=== PATIENT | female | born 1945 | race African-American/Black ===

== ENCOUNTER → 2016-11-20 | Outpatient (CLI) | payer MEDICARE, OTHER ==
[~2016-11-20] MED LIST: CRESTOR PO; DOC-Q-LACE100 MG PO; GLUCOPHAGE850 MG PO; GLYBURIDE PO; LANTUS100 U/ML SUBQ; LASIX20 MG PO; LOPRESSOR PO; METFORMIN HCL500 M1 PO; NOVOLIN 70/30 V10 M1 SQ; PRINIVIL10 MG PO; PRINIVIL40 MG PO; SIMVASTATIN80 MG PO; TRICOR145 MG PO; [UNRECOGNIZED DRUG - OTHER] OU
--- NOTE | ~2016-11-20 | CT57 ---
[facility] A Service of [facility] & [facility] RADIOLOGY TEXT RESULTS PATIENT: ROSA BUSTAMANTE LOCATION: [facility] : [birth year] UNIT #: [id number] AGE: [address]: Acosta Kelley MD SEX: F ORDER DR: [id number] [facility] [address]. [place], [place] [address] [id number] O MR#: [id number] Acc #: [id number] NAME: ROSA BUSTAMANTE : 1945 SEX: F STUDY DATE/TIME: 11/20/2016 10:39 UNIT: [facility] ROOM: STUDY DESCRIPTION: CT Chest Wo Cont Attending Physician: Acosta Kelley M.D. Ordering Physician: Acosat Kelley M.D. Primary Care Physician: Sam Jin M.D. MEDICAL IMAGING REPORT This report is preliminary unless electronic signature is present EXAM CT chest 11/20/2016 INDICATIONS Follicular lymphoma. Restaging. Observation for metastatic disease. TECHNIQUE CT of the thorax without contrast. Coronal and sagittal reconstructions were obtained. IV contrast was not administered due to the patient's underlying renal insufficiency. This CT exam was performed with one or more of the following radiation dose reduction techniques: automatic exposure control, adjustment of mA and/or kV according to patient size, and iterative reconstruction. COMPARISON CT chest dated 01/16/2016. FINDINGS There has been progression of the patient's lymphoma. An index lesion in the left axilla measures 4.9 x 5.1 cm, compared to 4.1 x 3.2 cm previously. Please note that the initial index lesion was excluded from the field of view in the left axilla. A index right axillary lymph node measures 4.4 x 3.9 cm compared to 3 x 2.97 previously. There is a new conglomeration of lymph nodes in the right axilla measuring up to 8.4 cm, compared to 5 cm previously. A left superior mediastinal lymph node measures 1 cm, unchanged. Please refer to separately dictated report for details on the neck. There is soft tissue in the anterior mediastinum measuring 5.6 x 3.4 cm, not significantly changed (previously 5.5 x 3.6 cm). [facility] A Service of [facility] RADIOLOGY TEXT RESULTS PATIENT: ROSA BUSTAMANTE LOCATION: [facility] : [birth year] UNIT #: [id number] AGE: [address]: Acosta Kelley MD SEX: F ORDER DR: No pericardial or pleural effusion. Central airways are patent. No focal airspace opacity. Please refer to separately dictated report for details on the abdominal lymphadenopathy. No new osseous abnormalities. IMPRESSION Progression of the patient's lymphadenopathy. This is predominately in the bilateral axilla. Dictated by... Joe Burkett M.D. THIS IS AN ELECTRONICALLY VERIFIED REPORT Joe Burkett M.D. at 11/21/2016 7:50 AM Vladislav TD: 11/20/2016 18:14 JOB #: [id number] MEDICAL IMAGING REPORT Page 1 of 1 COPY
--- NOTE | ~2016-11-20 | CT116 ---
[facility] A Service of [facility] RADIOLOGY TEXT RESULTS PATIENT: ROSA BUSTAMANTE LOCATION: [facility] : 45 UNIT #: [id number] AGE: [address]: Acosta Kelley MD SEX: F ORDER DR: [id number] [facility]. [place], [place] [address] [id number] O MR#: [id number] Acc #: [id number] NAME: ROSA BUSTAMANTE : 1945 SEX: F STUDY DATE/TIME: 11/20/2016 10:39 UNIT: [facility] ROOM: STUDY DESCRIPTION: CT Soft Tissue Neck Wo Cont Attending Physician: Acosta Kelley M.D. Ordering Physician: Acosta Kelley M.D. Primary Care Physician: Sam Jin M.D. MEDICAL IMAGING REPORT This report is preliminary unless electronic signature is present EXAM CT of the neck soft tissue without contrast. DATE OF EXAM 11/20/2016 HISTORY Follicular lymphoma for followup yearly. No current complaint per patient. COMMENT The patient did not receive contrast due to eGFR 35 at [id number] testing. This does somewhat limit evaluation for lymphadenopathy in the neck. COMPARISON The previous study for comparison is from 2009. TECHNIQUE NOTE: This CT exam was performed with one or more of the following radiation dose reduction techniques: automatic exposure control, adjustment of mA and/or kV according to patient size, and iterative reconstruction. FINDINGS Redemonstrated is extensive lymphadenopathy in the neck. Some sample comparison measurements are as follows. Right-sided jugular chain level 2-3B deep to the sternocleidomastoid muscle is a enlarged lymph node measuring 2.4 x 1.7 cm in dimension. This compares to previously measuring 3.5 x 3 cm dimension. Sample lymph node left side jugular chain level 3B deep to the sternocleidomastoid muscle measures 2.4 x 1.3 cm dimension as compared to 2.4 x 1.5 cm previously. Extensive lymphadenopathy is seen along the bilateral jugular chains 2, 3, 4 in the [facility] A Service of [facility] RADIOLOGY TEXT RESULTS PATIENT: ROSA BUSTAMANTE LOCATION: [facility] #: [id number] : [birth year] UNIT #: [id number] AGE: [address]: Acosta Kelley MD SEX: F ORDER DR: supraclavicular regions and subpectoral regions and extending into the upper chest. See the separate chest CT report. Sample right side supraclavicular node measures 3.1 cm in long axis dimension. It is larger than on prior measuring 2.2 cm long-axis dimension. Sample left-sided supraclavicular node measures 2.8 cm long axis dimension as compared to 1.8 cm long axis dimension previously. The matted appearing lymph nodes in the subpectoral region especially on the right side appear to be much larger. Please refer to the chest CT report. Adenopathy in the upper chest also appears to be much larger. Small lymph nodes are seen in the bilateral parotid glands. Submandibular glands are unremarkable with some large adjacent lymph nodes. In general, the lymphadenopathy in the upper neck including the submandibular region and the upper jugular chains is improved but the lymphadenopathy more inferiorly in the neck to the supraclavicular region and visualized upper chest appears to be considerably worse. Consider correlation with followup PET/CT. The thyroid gland is unremarkable. The airway is patent. The epiglottis is well defined. Patient has had cataract surgery bilaterally. Prevertebral soft tissues are normal. Mild cervical spine degenerative changes. The patient is partially edentulous and there is extensive dental disease in the visualized remaining teeth. Dental consultation would be suggested. IMPRESSION 1. This patient has extensive lymphadenopathy in the neck and extending into the upper chest. Sample measurements are provided above. In general, the lymphadenopathy in the lower neck to upper chest area appears to be significantly worse with multiple larger lymph nodes seen. The lymphadenopathy in the upper neck appears to be mildly improved. Comparison is being made back to the study from 2009. I do not have an interval study of the neck at this institution. Consider correlation with followup PET/ CT. Please see the separate CT chest dictation from the same day for description of the chest findings. 2. Extensive dental disease and I would suggest dental evaluation. Dictated by... Rosalinda A. Crecelius, M.D. THIS IS AN ELECTRONICALLY VERIFIED REPORT Rosalinda Bill M.D. at 11/24/2016 8:11 AM EDU/joe TD: 11/21/2016 22:28 JOB #: [id number] MEDICAL IMAGING REPORT Page 1 of 1 COPY
--- NOTE | ~2016-11-20 | CT4 ---
[facility] A Service [facility] RADIOLOGY TEXT RESULTS PATIENT: ROSA BUSTAMANTE LOCATION: [facility] : 45 UNIT #: [id number] AGE: [address]: Acosta Kelley MD SEX: F ORDER DR: [id number] [facility]. [place], [place] [address] [id number] O MR#: [id number] Acc #: [id number] NAME: ROSA BUSTAMANTE : 1945 SEX: F STUDY DATE/TIME: 11/20/2016 10:39 UNIT: [facility] ROOM: STUDY DESCRIPTION: CT Abd and Pelv Wo Cont Attending Physician: Acosta Kelley M.D. Ordering Physician: Acosta Kelley M.D. Primary Care Physician: Sam Jin M.D. MEDICAL IMAGING REPORT This report is preliminary unless electronic signature is present EXAM CT abdomen and pelvis 11/20/2016 INDICATIONS Follicular lymphoma. Restaging. Observation for metastatic disease. TECHNIQUE CT of the abdomen and pelvis without contrast. Coronal and sagittal reconstructions were obtained. IV contrast was not administered due to the patient's underlying renal insufficiency. This CT exam was performed with one or more of the following radiation dose reduction techniques: automatic exposure control, adjustment of mA and/or kV according to patient size, and iterative reconstruction. COMPARISON CT abdomen and pelvis dated 01/16/2016. FINDINGS There is progression of the patient's diffuse lymphadenopathy in the interval. An index omental lymph node measures 9 cm compared to 7 cm previously. There is bulky periportal lymph nodes. A index retroperitoneal lymph node near the inferior pole of the left kidney measures 4.5 cm compared to 3.9 cm previously. ABDOMEN: The liver, pancreas, spleen, adrenal glands, and kidneys have not significantly changed. The bowel is not dilated. PELVIS: Bulky pelvic lymphadenopathy is noted. An index conglomeration of lymph nodes in the left iliac region measures 8 cm. There is a conglomeration in the right iliac measuring 8.97 cm. The [facility] Service of [facility] RADIOLOGY TEXT RESULTS PATIENT: ROS[facility] BUSTAMANTE [id number] [birth year] UNIT #: [id number] AGE: [address]: Acosta Kelley MD SEX: F ORDER DR: unremarkable. There are several fibroids in the uterus. No acute osseous abnormalities. IMPRESSION Progression of diffuse lymphadenopathy indicative of progression of patient's disease. Dictated by... Joe Burkett M.D. THIS IS AN ELECTRONICALLY VERIFIED REPORT Joe Burkett M.D. at 11/21/2016 7:50 AM KRISTA/nichole TD: 11/20/2016 18:19 JOB #: [id number] MEDICAL IMAGING REPORT Page 1 of 1 COPY
[2016-11-20 09:55] LABS: POC - CREATININE 1.81 mg/dL (0.44-1.03)
== END | disposition home or self-care (01) ==
LOC: CCAT 09:14
PROVIDERS: Internal Medicine Medical Oncology
DX: C82.98 Follicular lymphoma, unspecified, lymph nodes of multiple sites (principal); E83.52 Hypercalcemia; R59.0 Localized enlarged lymph nodes
CPT/HCPCS: 70490; 71250; 74176; 82565